=== PATIENT | male | born 1955 | race African-American/Black ===

== ENCOUNTER 2017-04-09 08:49 | Day surgery (SDC) | payer BC ==
[~2017-04-09] VITALS: Ht 170.2 cm; Wt 110.7 kg
[2017-04-09] VITALS (8 sets, daily range): BP systolic 107–140; BP diastolic 69–86
[~2017-04-09 08:49] MED LIST: NKM
[2017-04-09] MEDS ORDERED: LR 1000ml 1,000 ML IVLG SCH (09:44)
[2017-04-09] MEDS ORDERED: Lidocaine 1% MPF 10mg/ml 5ml ONE (10:00)
[2017-04-09] MEDS ORDERED: Propofol 10mg/ml 20ml IV ONE (10:00)
[2017-04-09] MEDS ORDERED: LR 1000ml ONE (10:00)
--- NOTE | 2017-04-09 10:25 | Pre-Procedure Note/Attestation ---
Pre-Procedure Note/Attestation Complete Prior to Procedure Planned Procedure: not applicable Procedure Narrative: colon Indications for Procedure Pre-Operative Diagnosis: h/o colon polyp, occ BRBPR Attestation I attest that I discussed the nature of the procedure; its benefits; risks and complications; and alternatives (and the risks and benefits of such alternatives ), prior to the procedure, with the patient (or the patient's legal parts counter representative). I attest that, if there was a reasonable possibility of needing a blood transfusion, the patient (or the patient's legal parts counter representative) was given the [facility] standardized written summary, pursuant to the [place] Blood Safety Act ([place] Health and Safety Code # 1645, as amended). I attest that I re-evaluated the patient just prior to the surgery and that there has been no change in the patient's H&P, except as documented below: JOSE PEDRAZA Apr 09, 2017 10:25
--- NOTE | 2017-04-09 10:30 | Anethesia Preoperative Eval ---
Anesthesia Pre-op PMH/ROS General Date of Evaluation: Apr 09, 2017 Time of Evaluation: 10:29 Anesthesiologist: mundo ASA Score: ASA 2 Mallampati Score Class I : Soft palate, uvula, fauces, pillars visible Class II: Soft palate, uvula, fauces visible Class III: Soft palate, base of uvula visible Class IV: Only hard plate visible Mallampati Classification: Class III Surgeon: fiona Diagnosis: [place] Surgical Procedure: colonoscopy Anesthesia History: none Family History: no anesthesia problems Allergies: Coded Allergies: ASPIRIN (Verified Allergy, Intermediate, 04/08/17) swelling of eyes PERFUME (Verified Allergy, Intermediate, 04/08/17) bleeding in throat, flu-like symptoms Medications: see eMAR Past Medical History Cardiovascular: Denies: CAD, HTN, [place], arrhythmia, other, valve dz Pulmonary: Denies: COPD, DECLAN, asthma, other Gastrointestinal/Genitourinary: Denies: CRI, ESRD, GERD, other Neurologic/Psychiatric: Denies: CVA, TIA, dementia, depression/anxiety, other Endocrine: Denies: DM, hypothyroidism, other, steroids HEENT: Denies: [place] (L), [place] (R), cataract (L), cataract (R), glaucoma, other Hematology/Immune: Denies: DVT, anemia, bleeding disorder, other Other: obesity PMH Narrative: [place] PSxH Narrative: knee surgery Anesthesia Pre-op Phys. Exam Physician Exam Last Vital Signs Date Time Temp Pulse Resp B/P Pulse Ox O2 Delivery O2 Flow Rate FiO2 04/09/17 09:44 97.9 79 20 140/86 97 Room Air Constitutional: NAD Neurologic: CN 2-12 intact Cardiovascular: RRR Respiratory: CTA Gastrointestinal: S/NT/ND Airway Exam Mallampati Classification 3 MO: full Neck: thick ROM: full Dentures: no lower, no upper Anesthesia Pre-op A/P Studies Pre-op Studies: EKG - sr Risk Assessment & Plan Plan: mac Status Change Before Surgery: No Pre-Antibiotics Drug: none JEANNINE FAGAN CRNA Apr 09, 2017 10:30
--- NOTE | 2017-04-09 11:11 | Short Stay Surgery H&P ---
History of Present Illness History of Present Illness Chief Complaint see H&P HPI Adama Marino is a 62 year old male who was admitted on for [place] Patient History Allergies: Coded Allergies: ASPIRIN (Verified Allergy, Intermediate, 04/08/17) swelling of eyes PERFUME (Verified Allergy, Intermediate, 04/08/17) bleeding in throat, flu-like symptoms PAST MEDICAL HISTORY: Past Surgeries: Social History: Medication History Scheduled No Known Medications* (NKM - No Known Medications*), 0 ., (Reported) Physical Exam Vital Signs Last Vital Signs Date Time Temp Pulse Resp B/P Pulse Ox O2 Delivery O2 Flow Rate FiO2 04/09/17 09:44 97.9 79 20 140/86 97 Room Air Plan Attestation Are the patient's medical conditions optimized for surgery? JOSE PEDRAZA Apr 09, 2017 11:11
--- NOTE | 2017-04-09 11:13 | Endoscopy Procedure Note ---
Endoscopy Procedure Note Indication for Procedure: h/o polyp, BRB Operative Findings/Diagnosis: multiple polyps, rhoid Specimen: yes Pt Tolerated Procedure Well: Yes Estimated Blood Loss: none Anesthesiologist: see report Anesthesia: MAC, moderate sedation Implant(s) used?: No 50 yrs or older w/o bx or poly: No 10yrs. F/U not recommended: No If not recommended, why?: Above average risk 10 yrs. F/U needed: No 18 years or older w/prev. colo: Yes <3yrs. since last colonoscopy: No Med reason:<3 yrs.: System Reason:<3 yrs.: Last colonoscopy >= to 3yrs: Yes JOSE PEDRAZA Apr 09, 2017 11:13
--- NOTE | 2017-04-09 11:14 | Brief Operative Note ---
Immediate Post Operative Note Operative Note Chief Complaint: BRB, h/o polyp Pre-op Diagnosis: h/o colon polyp, occ BRBPR Procedure: colon with bx Post-op Diagnosis: polyp 4 ,plus rectal polyp x (likely HP) Surgeon: alfredo Anesthesiologist: see report Anesthesia: moderate sedation Specimen: yes Complications: none Condition: stable Estimated Blood Loss: none Drains: none Implant(s) used?: No JOSE PEDRAZA Apr 09, 2017 11:14
--- NOTE | 2017-04-09 11:15 | Immediate Post-Op Evaluation ---
Immediate Post-Op Evalulation Immediate Post-Op Evalulation Procedure: colonoscopy Date of Evaluation: Apr 09, 2017 Time of Evaluation: 11:15 IV Fluids: 500 Blood Pressure Systolic: 111 Blood Pressure Diastolic: 69 Pulse Rate: 75 Respiratory Rate: 14 O2 Sat by Pulse Oximetry: 100 Nausea: No Vomiting: No Complications none Patient Status: awake, patent Hydration Status: adequate Drug: none JEANNINE FAGAN CRNA Apr 09, 2017 11:15
--- NOTE | 2017-04-09 11:56 | 48 Hour Post Anesthesia Eval ---
Post Anesthesia Evaluation Procedure: colonoscopy Date of Evaluation: Apr 09, 2017 Time of Evaluation: 11:56 Blood Pressure Systolic: 112 0: 65 Pulse Rate: 70 O2 Sat by Pulse Oximetry: 99 Airway: patent Nausea: No Vomiting: No Hydration Status: adequate Cardiopulmonary Status: stable Mental Status/LOC: patient returned to baseline Post-Anesthesia Complications: none Follow-up care needed: N/A JEANNINE FAGAN CRNA Apr 09, 2017 11:56
--- NOTE | 2017-04-09 15:00 | Operative Note - Dictated ---
DATE OF OPERATION: 04/09/2017 PROCEDURE: Colonoscopy with biopsy and polypectomy. SURGEON: Bob Rice M.D. ANESTHESIA: Please see the separate anesthesiologist notes for details. PRE-ENDOSCOPIC DIAGNOSES: 1. History of colonic polyps. 2. Occasional hematochezia. POST-ENDOSCOPIC DIAGNOSIS: 1. Pedunculated polyp in the ascending colon, status post cold snare polypectomy as well as biopsy of the base with complete removal. 2. Diminutive polyp in the transverse colon, status post biopsy, removal. 3. Diminutive polyp in the descending colon, status post biopsy, removal. 4. Diminutive polyp in the sigmoid colon, status post biopsy, removal. 5. Multiple flat small polyps in the rectum suggestive of hyperplastic polyps, status post biopsy x4, submitted in the same bottle. 6. Mild internal hemorrhoids. RECOMMENDATIONS: 1. Follow up biopsy results. 2. Outpatient follow up. 3. Surveillance colonoscopy in the future. Thank you for asking me to participate in the care of this patient. Bob Rice M.D. DR: SHOAIB JOB#: [id number] CC: Bob Rice M.D.; Fax#: [phone] ; Fax#: [phone]
== END 2017-04-09 12:10 | disposition home or self-care (01) ==
LOC: GAS 08:49
DX: K92.1 Melena (principal); D12.2 Benign neoplasm of ascending colon; D12.3 Benign neoplasm of transverse colon; D12.4 Benign neoplasm of descending colon; D12.5 Benign neoplasm of sigmoid colon; K62.1 Rectal polyp; K64.8 Other hemorrhoids; K21.9 Gastro-esophageal reflux disease without esophagitis; E66.9 Obesity, unspecified; Z86.010 Personal history of colon polyps; Z88.6 Allergy status to analgesic agent; Z91.048 Other nonmedicinal substance allergy status
CPT/HCPCS: 45380; 45385; J2704; J7120; 94003; 94150